=== PATIENT | male | born 1985 | race Caucasian/White ===

== ENCOUNTER 2016-05-25 15:16 | Outpatient (RCR) | payer BC | END 2016-07-10 08:31 | disposition home or self-care (01) | LOC: PT 15:16 | DX: M54.5 Low back pain (principal); M79.604 Pain in right leg; Z87.828 Personal history of other (healed) physical injury and trauma | CPT/HCPCS: G0283-GP ==

== ENCOUNTER → 2019-02-06 | Outpatient (CLI) | payer BC ==
[~2019-02-06] VITALS: Ht 180.3 cm; Wt 101.4 kg
[2019-02-06 14:45] VITALS: BP 137/88
== END ==
LOC: RAD 13:48
DX: M43.8X2 Other specified deforming dorsopathies, cervical region (principal); R20.2 Paresthesia of skin; R07.89 Other chest pain